=== PATIENT | male | born 1935 | race Caucasian/White ===

== ENCOUNTER 2016-08-18 23:21 | Inpatient (IN) | payer MEDICARE, MEDICAID ==
--- NOTE | 2016-08-18 23:25 | ED Physician Chart ---
Chief Complaint/HPI - Patient Information Date Seen:: 08/18/16 Time Seen:: 23:25 Chief Complaint:: agitation History of Present Illness:: 81-year-old male brought in from nursing facility with acute, worsening, severe , agitation since this morning. Has some associated underlying aggressive behavior towards staff as well. Limited history due to underlying dementia and psychosis History provided by EMS and EMS run sheet Historian:: EMS Review:: Nurse's Note Reviewed, EMS run form Reviewed Review of Systems - Review of Systems Other: Complete system review otherwise unremarkable except as noted in history of present illness. Past Medical History - Past Medical History Past Medical History: DM, Dyslipidemia, Dementia Family History: None Social History: Non Smoker, No Alcohol, No Drug Use, Care Facility Surgical History: None Psychiatricy History: Dementia Medication: Reviewed Family Medical History - Family Member Mother History Unknown: Yes Physical Exam - Physical Examination Other:: INITIAL VITAL SIGNS: Reviewed by me GENERAL: Alert and interactive but demented. No acute distress HEAD: Head is normocephalic and atraumatic EYES: EOMI. PERRL. No scleral icterus. No conjunctival injection ENT: Dry mucous membranes NECK: Supple. No masses. Full range of motion RESPIRATORY: No tachypnea. Clear breath sounds bilaterally. No wheezing, rales, or rhonchi CV: Regular rate and rhythm. No murmurs, rubs, or gallops ABDOMEN: Soft, non-distended, non-tender. No guarding. No rebound. No masses. EXTREMITIES: No deformity. No cyanosis. No edema. SKIN: Warm and dry. No obvious rashes. NEUROLOGIC: Alert and oriented. Face is symmetric. Speech is normal. Moves all extremities equally. Motor and sensory distally intact. Labs/Radiology/EKG Results - Lab Results Results: Lab Results 08/18/16 08/18/16 08/18/16 Range/Units 00:00 23:53 23:53 WBC 8.0 (4.8-10.8) Th/cmm RBC 5.25 (3.80-5.80) Mil/cmm Hgb 16.1 (12.6-17.4) gm/dL Hct 45.7 (39.0-49.0) % MCV 87.0 (80-99) fl MCH 30.6 (27.0-31.0) pg MCHC Differential 35.2 (28.0-36.0) pg RDW 12.0 (11.5-20.0) % Plt Count 169 (150-400) Th/cmm MPV 9.2 fl Neutrophils % 49.6 (40.0-80.0) % Lymphocytes % 39.0 (20.0-50.0) % Monocytes % 8.0 (2.0-10.0) % Eosinophils % 2.9 (0.0-5.0) % Basophils % 0.5 (0.0-2.0) % Sodium 133 L (136-145) mEq/L Potassium 4.1 (3.5-5.1) mEq/L Chloride 101 (98-107) mEq/L Carbon Dioxide 26.8 (21.0-31.0) mEq/L Anion Gap 9.3 (7.0-16.0) BUN 30 H (7-25) mg/dL Creatinine 1.5 H (0.7-1.3) mg/dL Est GFR ( Amer) TNP Est GFR (Non-Af Amer) TNP BUN/Creatinine Ratio 20.0 Glucose 394 H (70-105) mg/dL Calcium 9.7 (8.6-10.3) mg/dL Total Bilirubin 0.7 (0.3-1.0) mg/dL AST 25 (13-39) U/L ALT 33 (7-52) U/L Alkaline Phosphatase 65 (34-104) U/L Total Protein 7.8 (6.0-8.3) gm/dL Albumin 4.2 (4.2-5.5) gm/dL Globulin 3.6 gm/dL Albumin/Globulin Ratio 1.2 (1.0-1.8) Triglycerides 88 (<150) mg/dL Cholesterol 78 (<200) mg/dL LDL Cholesterol Direct 28 L (75-193) mg/dL HDL Cholesterol 38 (23-92) mg/dL TSH (0.34-5.60) uIU/ml Urine Source CLEAN C Urine Color YELLOW Urine Clarity CLEAR (CLEAR) Urine pH 6.0 Ur Specific [place] 1.015 (1.005-1.030) Urine Protein NEGATIVE (NEGATIVE) mg/dL Urine Glucose (UA) 500 H (NEGATIVE) mg/dL Urine Ketones NEGATIVE (NEGATIVE) mg/dL Urine Blood TRACE (NEGATIVE) Urine Nitrate NEGATIVE (NEGATIVE) Urine Bilirubin NEGATIVE (NEGATIVE) Urine Urobilinogen 0.2 (0.2 - 1.0) E.U./dL Ur Leukocyte Esterase NEGATIVE (NEGATIVE) Urine RBC 2-5 H (0-5) /hpf Urine WBC 0-2 (0-5) /hpf Ur Epithelial Cells OCCASIONAL (FEW) /lpf Urine Bacteria OCCASIONAL (NONE SEEN) /hpf 08/18/16 Range/Units 23:53 WBC (4.8-10.8) Th/cmm RBC (3.80-5.80) Mil/cmm Hgb (12.6-17.4) gm/dL Hct (39.0-49.0) % MCV (80-99) fl MCH (27.0-31.0) pg MCHC Differential (28.0-36.0) pg RDW (11.5-20.0) % Plt Count (150-400) Th/cmm MPV fl Neutrophils % (40.0-80.0) % Lymphocytes % (20.0-50.0) % Monocytes % (2.0-10.0) % Eosinophils % (0.0-5.0) % Basophils % (0.0-2.0) % Sodium (136-145) mEq/L Potassium (3.5-5.1) mEq/L Chloride (98-107) mEq/L Carbon Dioxide (21.0-31.0) mEq/L Anion Gap (7.0-16.0) BUN (7-25) mg/dL Creatinine (0.7-1.3) mg/dL Est GFR ( Amer) Est GFR (Non-Af Amer) BUN/Creatinine Ratio Glucose (70-105) mg/dL Calcium (8.6-10.3) mg/dL Total Bilirubin (0.3-1.0) mg/dL AST (13-39) U/L ALT (7-52) U/L Alkaline Phosphatase (34-104) U/L Total Protein (6.0-8.3) gm/dL Albumin (4.2-5.5) gm/dL Globulin gm/dL Albumin/Globulin Ratio (1.0-1.8) Triglycerides (<150) mg/dL Cholesterol (<200) mg/dL LDL Cholesterol Direct (75-193) mg/dL HDL Cholesterol (23-92) mg/dL TSH 2.88 (0.34-5.60) uIU/ml Urine Source Urine Color Urine Clarity (CLEAR) Urine pH Ur Specific [place] (1.005-1.030) Urine Protein (NEGATIVE) mg/dL Urine Glucose (UA) (NEGATIVE) mg/dL Urine Ketones (NEGATIVE) mg/dL Urine Blood (NEGATIVE) Urine Nitrate (NEGATIVE) Urine Bilirubin (NEGATIVE) Urine Urobilinogen (0.2 - 1.0) E.U./dL Ur Leukocyte Esterase (NEGATIVE) Urine RBC (0-5) /hpf Urine WBC (0-5) /hpf Ur Epithelial Cells (FEW) /lpf Urine Bacteria (NONE SEEN) /hpf - EKG Interpretations Comments:: 12-lead EKG Interpretation by Raymond Guzman MD: Normal Sinus Rhythm with ventricular rate of 78 beats per minute Normal axis Normal intervals No acute ST or T wave changes. No obvious STEMI ED Septic Shock - . Is Septic Shock (SBP<90, OR Lactate>4 mmol\L) present?: No Reassessment (Disposition) - Reassessment Reassessment:: This patient is here for medical clearance for admission to the geriatric psych unit however the patient shows signs of dehydration and hyperglycemia. He will need further workup and treatment prior to admission. We have initiated this treatment with inserting IV line and giving IV hydration. Discussed case with admitting physician who will admit the patient for further workup and treatment. After which she can be reassessed for admission to the geriatric psych unit. Reassessment Condition:: Improved - Diagnosis Diagnosis:: Acute kidney injury Acute dehydration Acute hyperglycemia Acute psychosis, NOS - Patient Disposition Discharge/Transfer:: Acute Care w/in this hosp Admitted to:: Med/Surg Admitting Medical Physician:: Finesse Bolden Time:: 00:59 Condition at Disposition:: Stable ED Discharge Plan - Patient Disposition Admit/Discharge/Transfer: Acute Care w/in this hosp
[2016-08-19 00:05] LABS: % BASOPHILS 0.5 % (0.0-2.0); % EOSINOPHILS 2.9 % (0.0-5.0); % NEUTROPHILS 49.6 % (40.0-80.0); HEMATOCRIT 45.7 % (39.0-49.0); HEMOGLOBIN 16.1 gm/dL (12.6-17.4); MEAN CORPUSCULAR HEMOGLOBIN 30.6 pg (27.0-31.0); MEAN CORPUSCULAR HGB CONC 35.2 pg (28.0-36.0); MEAN PLATELET VOLUME 9.2 fl; NEUTROPHILE ABSOLUTE 4.1 Th/cmm (1.8-8.0); PLATELET COUNT 169 Th/cmm (150-400); RED BLOOD COUNT 5.25 Mil/cmm (3.80-5.80)
[2016-08-19 00:17] LABS: ALB/GLOB RATIO 1.2 (1.0-1.8); ALKALINE PHOSPHATASE 65 U/L (34-104); ANION GAP 9.3 (7.0-16.0); BILIRUBIN,TOTAL 0.7 mg/dL (0.3-1.0); BUN - UREA NITROGEN 30 mg/dL (7-25); CALCIUM SERUM 9.7 mg/dL (8.6-10.3); CARBON DIOXIDE 26.8 mEq/L (21.0-31.0); CHLORIDE 101 mEq/L (98-107); CHOLESTEROL 78 mg/dL (<200); CREATININE - SERUM 1.5 mg/dL (0.7-1.3); GLUCOSE 394 mg/dL (70-105); POTASSIUM SERUM 4.1 mEq/L (3.5-5.1); SGOT 25 U/L (13-39); SGPT/ALT 33 U/L (7-52); SODIUM SERUM 133 mEq/L (136-145); TRIGLYCERIDES 88 mg/dL (<150)
[2016-08-19 00:29] LABS: URINE BILIRUBIN NEGATIVE (NEGATIVE); URINE BLOOD TRACE (NEGATIVE); URINE COLOR YELLOW; URINE GLUCOSE (UA) 500 mg/dL (NEGATIVE); URINE KETONE NEGATIVE (NEGATIVE); URINE PROTEIN NEGATIVE (NEGATIVE); URINE UROBILINOGEN 0.2 E.U./dL (0.2 - 1.0)
[2016-08-19 00:30] LABS: URINE BACTERIA OCCASIONAL /hpf (NONE SEEN); URINE EPITHELIAL CELLS OCCASIONAL /lpf (FEW); URINE WBC 0-2 /hpf (0-5)
[2016-08-19] MEDS ORDERED: Sodium Chloride 0.9% 1,000 ML IV ONE (00:53)
[2016-08-19] MEDS: Sodium Chloride 0.9% 1,000 ML IV SCH ×2 (02:35→15:29)
--- NOTE | 2016-08-19 06:32 | Admit Criteria Form ---
Admit Criteria Forms - Admit Criteria Diagnosis: PSYCHIATRIC DISORDERS Clinical Indications for Inpatient Care (Place 'X' for any and all applicable criteria): Ongoing inpatient care may be needed for ANY ONE of the following(1)(2)(3)(4)(6) (7)(8): [ ]I. Danger to self or others not manageable at lower level of care. [ ]II. Grave disability (eg, inability to perform self care necessary at lower level of care) [X ]III. Agitation or inappropriate behavior interfering with care for primary condition (eg, attempting to discontinue lines or drains prematurely, unable to cooperate with respiratory care) [ ]IV. Severe disability or disorder indicated by ALL of the following: [ ]a) Severe behavioral health disorder-related symptoms or condition indicated by ANY ONE of the following: [ ]i) Severe problem with cognition, memory, judgment, or impulse control [ ]ii) Severe clinical manifestations (eg, hallucinations, delusions, other acute psychotic symptoms, mora, extreme agitation or anxiety) [ ]b) Patient management at lower level of care is not feasible until acute intervention or modification is initiated. Extended stay beyond goal length of stay for the primary condition may be indicated when ANY ONE of the following is present: (1)(2)(3)(4): [ ]a) Patient is a danger to self or others and not manageable at lower level of care. [ ]b) Behavior crisis management, including physical or chemical restraints, is required and is not available at a lower level of care. [ ]c) Behavioral symptoms (e.g., agitation, somnolence, inappropriate behavior) are present, and are not manageable at a lower level of care. [ ]d) Patient cannot understand follow-up treatment and crisis plan. [ ]e) Provider and supports are not sufficiently available at lower level of care. [ ]f) Patient cannot participate (e.g., verify absence of plan for harm) and is in needed of monitoring. The original [facility] [employer] content created by [facility] has been revised. The portions of the content which have been revised are identified through the use of italic text or in bold, and [facility] has neither reviewed nor approved the modified material. All other unmodified content is copyright [facility]. Please see references footnoted in the original [facility] edition 2016 Admit Criteria Met?: Yes
[2016-08-19] MEDS: INSULIN ASPART, RECOMBINANT 100 UNITS/ML SUBQ SCH ×4 (07:54→21:05)
[2016-08-19] MEDS ORDERED: APAP/Codeine 300 mg/30 mg Tab PO PRN (16:37)
[2016-08-19] MEDS ORDERED: Magnesium Hydroxide (MOM) 30 mL UDC PO PRN (16:37)
--- NOTE | 2016-08-19 17:11 | History & Physical ---
PATIENT IDENTIFICATION: An 81-year-old male. CHIEF COMPLAINT: "I am fine." HISTORY OF PRESENT ILLNESS: An 81-year-old Argentine male who resides at a custodial, admitted by me last night because the patient was initially advised to be admitted at Geropsych Unit noted to have blood sugar of more than 400 and the patient was weak. The patient was admitted for further management of his diabetes. The patient was also noted to have elevated BUN and creatinine. The patient has underlying dementia and unable to get meaningful history. According to him, he has been living here for a long time. PAST MEDICAL HISTORY: Remarkable for diabetes, hypertension, hyperlipidemia, BPH, DJD and psychotic disorder. MEDICATIONS: List has been reviewed and reconciled appropriately. ALLERGIES: The patient is not allergic to medications. SOCIAL HISTORY: He currently resides in a custodial. No smoking cigarette, alcohol or drug use. FAMILY MEDICAL HISTORY: Unavailable. REVIEW OF SYSTEMS: Unable to get meaningful history from the patient. PHYSICAL EXAMINATION: GENERAL: The patient is alert, awake, lying in the bed. VITAL SIGNS: Temperature 97.7, pulse 75, respiratory rate 18, blood pressure 156/93. HEENT: Normocephalic, atraumatic. Extraocular muscles are intact. Tongue was pink and coated. Poor dentition noted. NECK: Supple, no JVD, no hepatojugular reflux. No lymphadenopathy, thyromegaly or carotid bruit. HEART: Both heart sounds are regular. No S3, no S4, no murmur. CHEST: Lung equal in expansion with expiratory wheezing throughout. ABDOMEN: Soft. No guarding, no rigidity. Liver and spleen nonpalpable. No palpable mass. EXTREMITIES: No edema, no cyanosis. NEUROLOGIC: Alert, awake, follows commands. No gross neuro deficit noted. Mini mental status examination is tried to perform in which patient became ____ noncooperative. AVAILABLE DIAGNOSTIC DATA: CBC within normal limits. BUN and creatinine is 30 and 1.5. Glucose is 394. The patient's hemoglobin A1c is 11.5. Urinalysis remarkable for significant glucose in the urine and rbc's were 25. Chest x-ray and EKG were nondiagnostic for acute ischemia. CLINICAL IMPRESSION: 1. Uncontrolled diabetes mellitus. 2. Prerenal azotemia. 3. Hypertension. 4. Hyperlipidemia. 5. Degenerative joint disease. 6. Alzheimer's type dementia. 7. Psychotic disorder. PLAN: The patient has been admitted by me to the hospital for IV fluid and blood sugar management where the patient is extremely noncompliant. I will put the patient currently on medication as the patient is receiving and have psychiatrist to see the patient and the patient was accepted transfer to the Psych Unit for psychiatric care where I will be managing the patient's diabetes as well. Care plan has been reviewed and discussed with patient and staff. JOB# [id number]
[2016-08-19] MEDS: Fleet Enema 135 mL RC SCH (17:28)
[2016-08-19] MEDS: Atorvastatin Calcium 10 MG TAB PO SCH (20:54)
[2016-08-19] MEDS ORDERED: INSULIN ASPART, RECOMBINANT 100 UNITS/ML SUBQ SCH (21:00)
[2016-08-19] MEDS ORDERED: INSULIN GLARGINE SUBQ SCH (21:00)
[2016-08-19] MEDS: Insulin Detemir 100 units/mL 10mL Vial SUBQ SCH (21:03)
--- NOTE | 2016-08-20 01:51 | Consultation ---
IDENTIFYING INFORMATION: The patient is an 81-year-old male. REASON FOR CONSULTATION: The patient has been getting agitated and aggressive. The patient himself was a very poor historian. He was unable to tell me his age, where he is, why he is here. He did not able to tell me the date. He does not know where he lives. He is demented and confused. PAST PSYCHIATRIC HISTORY: He is not sure if he has been before, unable to give information from the patient. He is a poor historian, though he is alert. MEDICAL HISTORY: HISTORY: Deferred to the medical doctor. FAMILY AND SOCIAL HISTORY: The patient has no information about any family history, however, he told me he was single, never , no children. 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 MENTAL STATUS EXAMINATION: The patient was appropriately dressed, not very well groomed. He looked disheveled, disorganized, internally preoccupied, unable to participate in meaningful conversation, unable to tell me his age, where he is, why he is here. He reports he sleeps well and eats well. He has been getting very agitated and he cannot tell me why he gets agitated. His long or short term memory is poor. He is unable to tell me his age, where he is, that he is here. His insight and judgment are impaired. IMPRESSION: AXIS I: Psychosis, not otherwise specified, and dementia. MEDICAL DIAGNOSES: Deferred to the medical doctor. I would recommend to start the patient on Risperdal. I will start him on Risperdal 0.25 mg twice a day. We will do group therapy, milieu therapy, and individual therapy. The patient needs to be placed in a safe environment. I will follow up with the patient. The patient may need to be transferred to psych unit when medically cleared. Thank you very much for allowing me to participate in the care of this most interesting gentleman. JOB# [id number]
[2016-08-20] MEDS: INSULIN ASPART, RECOMBINANT 100 UNITS/ML SUBQ SCH (06:44)
[2016-08-20] MEDS ORDERED: CALCIUM CARBONATE PO SCH (09:00)
[2016-08-20] MEDS ORDERED: VITAMIN D3 PO SCH (09:00)
[2016-08-20] MEDS ORDERED: [UNRECOGNIZED DRUG - OTHER] PO SCH (09:00)
[2016-08-20] MEDS: Calcium Carb/Vit D 500 mg/200 U Tab PO SCH (09:27)
[2016-08-20] MEDS: Multivitamin w/ Minerals Tab PO SCH (09:27)
[2016-08-20] MEDS: Sodium Chloride 0.9% 1,000 ML IV SCH ×2 (11:42→17:42)
[2016-08-20] MEDS ORDERED: INSULIN ASPART SLIDING SCALE 100 UNITS/ML UNIT SUBQ SCH (11:45)
[2016-08-20 12:18] LABS: HEP B CORE IGM Negative (Negative); HEP C ANTIBODY 0.1 s/co ratio (0.0-0.9)
[2016-08-20] MEDS: INSULIN ASPART SLIDING SCALE 100 UNITS/ML UNIT SUBQ SCH ×3 (12:22→22:03)
[2016-08-20] MEDS: Fleet Enema 135 mL RC SCH (17:39)
[2016-08-20] MEDS: Atorvastatin Calcium 10 MG TAB PO SCH (22:02)
[2016-08-20] MEDS: Insulin Detemir 100 units/mL 10mL Vial SUBQ SCH (22:05)
--- NOTE | 2016-08-21 01:51 | Progress Notes ---
Case was discussed with staff of the patient, reviewed records. The patient continues to be forgetful. He does not know where he lived before. Apparently, he is living in a [facility]dc and they send all his belongings with him. He continues to be easily agitated and irritable, continues to be unable to make safe plan for self-care, unpredictable and impulsive. I found out that he has been on Seroquel, so I will be discontinuing Risperdal. I did start him on Aricept ____ please transfer the patient to [facility] when medically cleared. Thank you very much for allowing me to participate in the care of this most interesting gentleman. JOB# [id number]
[2016-08-21] MEDS: Sodium Chloride 0.9% 1,000 ML IV SCH (06:42)
[2016-08-21] MEDS: INSULIN ASPART SLIDING SCALE 100 UNITS/ML UNIT SUBQ SCH ×3 (06:43→14:02)
[2016-08-21] MEDS: Multivitamin w/ Minerals Tab PO SCH (09:14)
[2016-08-21] MEDS: Calcium Carb/Vit D 500 mg/200 U Tab PO SCH (09:14)
--- NOTE | 2016-08-22 00:39 | Progress Notes ---
Case was discussed with staff of the patient. The patient has been more cooperative. The patient is sleeping well, eating well. He is not acting in anyway dangerous at this point. He denies any intent to harm himself or anybody. Still confused, demented, cannot know the date, how old he is, where he is. At this point, there is no point sending him to [facility] and follow up with the psychiatrist at the correction upon discharge and no side effects with the medication. Thank you very much for allowing me to participate in the care of this very interesting lady, he no longer meeting criteria for the inpatient hospitalization at [facility]. JOB# [id number]
--- NOTE | 2016-08-22 19:37 | Discharge Summary ---
PRINCIPAL DIAGNOSES: 1. Uncontrolled diabetes mellitus. 2. Dehydration. 3. Chronic kidney disease. 4. Prerenal azotemia. 5. Psychotic disorder. 6. Hypertension. 7. Degenerative joint disease. 8. Hyperlipidemia. 9. Psychotic disorder. 10. Benign prostatic hyperplasia. BRIEF STATEMENT FOR THE REASON FOR ADMISSION: This is an 81-year-old [place] male who resides at [facility]ci, presented to Emergency Room at [facility] for increasing agitations, but the patient was noted to have blood sugar of 400 plus elevated BUN and creatinine. The patient was advised to be admitted to medical floor. Please refer to my dictated medical H and P for further information. HOSPITAL COURSE: The patient was admitted to Med/Surg floor. IV fluid was given. Diabetes was managed. Appropriate home medicine was reconciliated. Psych consultation was requested as well. The patient was seen by Dr. Naranjo with initial impressions to admit this patient to psychiatric unit, but subsequently noted that the patient became very cooperative and was able to sleep and eating well, and the patient was not acting in any dangerous way at that point and recommended that the patient should be discharged back to [facility]. The patient was still confused, demented, and cannot know the date, so I did have a discussion with psychiatrist to send him back to the [facility] since the patient had no behavioral issues after the patient's coming to the medical floor. The patient did well. The patient was placed on psychotropic medications as well. The patient did have an episode of choking after eating food. For that, the patient was also observed, but later on, the patient had no evidence of any dysphagia. The patient was [facility] to [facility] from on 08/21/2016, where the patient will be followed by his own primary care physician. At the time of discharge, all of his meds were reconciliated. JOB# [id number]
== END 2016-08-21 15:30 | DRG 637 ==
LOC: ER 23:21 → MSI 08-19 01:00
PROVIDERS: ADMIT Internal Medicine; ATTEND Internal Medicine
DX: E11.00 Type 2 diabetes mellitus with hyperosmolarity without nonketotic hyperglycemic-hyperosmolar coma (NKHHC) (principal); G93.41 Metabolic encephalopathy; N17.9 Acute kidney failure, unspecified; E11.65 Type 2 diabetes mellitus with hyperglycemia; G30.9 Alzheimer's disease, unspecified; F02.80 Dementia in other diseases classified elsewhere, unspecified severity, without behavioral disturbance, psychotic disturbance, mood disturbance, and anxiety; I12.9 Hypertensive chronic kidney disease with stage 1 through stage 4 chronic kidney disease, or unspecified chronic kidney disease; E78.5 Hyperlipidemia, unspecified; M19.90 Unspecified osteoarthritis, unspecified site; F29 Unspecified psychosis not due to a substance or known physiological condition; N40.0 Benign prostatic hyperplasia without lower urinary tract symptoms; N18.9 Chronic kidney disease, unspecified
CPT/HCPCS: 36415-UA; 80053-TC; 80061-TC; 80074-90; 81001-TC; 82948-90; 83036-90; 84443-TC; 85025-TC; 86592-TC; 93005; J1815; J7030; Z7610

== ENCOUNTER 2017-12-27 18:15 | Inpatient (IN) | payer MEDICARE, MEDICAID ==
--- NOTE | 2017-12-27 18:35 | ED Physician Chart ---
ED Chief Complaint/HPI - Patient Information Date Seen:: 12/27/17 Chief Complaint:: inappropriate sexual behavior History of Present Illness:: inappropriate sexual behavior pulling down pants. Allergies:: Allergies Allergy/AdvReac Type Severity Reaction Status Date / Time No Known Allergies Allergy Verified 08/18/16 23:40 ED Review of Systems - Review of Systems Skin: No skin lesions, No rash, No bruising Head: No headache, No light-headedness Eyes: No loss of vision, No pain, No diplopia ENT: No earache, No nasal drainage, No sore throat, No tinnitus Neck: No neck pain, No swelling, No thyromegaly, No stiffness, No mass noted Cardio Vascular: No chest pain, No palpitations, No PND, No orthopnea, No edema Pulmonary: No SOB, No cough, No sputum, No wheezing GI: No nausea, No vomiting, No diarrhea, No pain, No melena, No hematochezia, No constipation, No hematemesis G/U: No dysuria, No frequency, No hematuria Musculoskeletal: No bone or joint pain, No back pain, No muscle pain Endocrine: No polyuria, No polydipsia Psychiatric: No suicidal ideation, Other (inappropriate sexual behavior, pulling down pants) Hematopoietic: No bruising, No lymphadenopathy Allergic/Immuno: No urticaria, No angioedema Neurological: No syncope, No focal symptoms, No weakness, No paresthesia, No headache, No seizure, No dizziness, No confusion, No vertigo ED Past Medical History - Past Medical History Obtainable: Yes (through records only) Family Medical History - Family Member Mother History Unknown: Yes ED Physical Exam - Physical Examination General/Constitutional: Awake, Well-developed, well-nourished, No distress, Non- toxic appearing Head: Atraumatic Eyes: Lids, conjuctiva normal, PERRL, EOMI Skin: Nl inspection, No rash, No skin lesions, No ecchymosis, Well hydrated, No lymphadenopathy Other Skin comments:: patient is wearing big, bulky diabetic shoes, but there are no lesions anywhere on this feet. ENMT: External ears, nose nl, Nasal exam nl, Lips, teeth, gums nl Other ENMT comments:: very dry mucous membranes. Neck: Nontender, Full ROM w/o pain, No JVD, No nuchal rigidity, No bruit, No mass, No stridor Respiratory: Nl effort/Exclusion, Clear to Auscultation, No Wheeze/Rhonchi/Rales Cardio Vascular: RRR, No murmur, gallop, rubs, NL S1 S2 GI: No tenderness/rebounding/guarding, No organomegaly, No hernia, Normal BS's, Nondistended, No mass/bruits, No McBurney tenderness : No CVA tenderness Extremities: No tenderness or effusion, Full ROM, normal strength in all extremities, No edema, Normal digits & nails Neuro/Psych: Mood normal Other Neuro/Psych comments:: mood normal at this time, but I examined the patient with a male nurse. ED Assessment - Assessment General Assessment: EKG from 19:36:17 p.m.: normal sinus rhythm, flipped t wave in II, III, AVF and V3 to V6. Assessment/Comments:: spoke to Dr. Paris about this patient who agrees that he is not medically cleared from a medical standpoint. He will admit the patient. IV fluids and IV Insulin were written for. ED Septic Shock - . Is Septic Shock (SBP<90, OR Lactate>4 mmol\L) present?: No ED Reassessment (Disposition) - Diagnosis Diagnosis:: Diabetes mellitus, uncontrolled Inappropriate sexual behavior Metabolic encephalopathy Hypertension Muscle weakness Hyperlipidemia Epilepsy, unspecified. - Patient Disposition Discharge/Transfer:: Acute Care w/in this hosp
[2017-12-27 18:42] LABS: % BASOPHILS 0.1 % (0.0-2.0); % EOSINOPHILS 2.8 % (0.0-5.0); % LYMPHOCYTES 40.1 % (20.0-50.0); % MONOCYTES 6.9 % (2.0-10.0); % NEUTROPHILS 50.1 % (40.0-80.0); EOSINOPHILE ABSOLUTE 0.2 Th/cmm (0.1-0.4); HEMATOCRIT 43.2 % (41.0-60); HEMOGLOBIN 14.7 gm/dL (12-16); LYMPHOCYTE ABSOLUTE 3.1 Th/cmm (1.5-3.0); MEAN CORPUSCULAR HEMOGLOBIN 30.4 pg (27.0-31.0); MEAN CORPUSCULAR HGB CONC 34.1 pg (28.0-36.0); MEAN PLATELET VOLUME 8.2 fl; MONOCYTE ABSOLUTE 0.5 Th/cmm (0.3-1.0); NEUTROPHILE ABSOLUTE 3.9 Th/cmm (1.8-8.0); PLATELET COUNT 221 Th/cmm (150-400); RED BLOOD COUNT 4.85 Mil/cmm (3.80-5.80); RED CELL DISTRIBUTION WIDTH 12.1 % (11.5-20.0); WHITE BLOOD COUNT 7.7 Th/cmm (4.8-10.8)
[2017-12-27 18:57] LABS: ALB/GLOB RATIO 1.3 (1.0-1.8); ALKALINE PHOSPHATASE 78 U/L (34-104); ANION GAP 13.3 (7.0-16.0); BILIRUBIN,TOTAL 0.7 mg/dL (0.3-1.0); BUN - UREA NITROGEN 34 mg/dL (7-25); CALCIUM SERUM 9.2 mg/dL (8.6-10.3); CARBON DIOXIDE 27.4 mEq/L (21.0-31.0); CHLORIDE 93 mEq/L (98-107); CREATININE - SERUM 1.5 mg/dL (0.7-1.3); MAGNESIUM 2.2 mg/dL (1.9-2.7); PHOSPHOROUS 3.5 mg/dL (2.5-5.0); POTASSIUM SERUM 4.7 mEq/L (3.5-5.1); SGOT 13 U/L (13-39); SGPT/ALT 15 U/L (7-52); SODIUM SERUM 129 mEq/L (136-145); TOTAL PROTEIN,SERUM 7.2 gm/dL (6.0-8.3)
[2017-12-27 18:58] LABS: GLUCOSE 536 mg/dL (70-105)
[2017-12-27] MEDS ORDERED: INSULIN HUMAN REGULAR 100 UNITS/ML UNIT IVP ONE (19:06)
[2017-12-27] MEDS ORDERED: Sodium Chloride 0.9% 1,000 ML IV ONE (19:12)
[2017-12-27 19:18] LABS: URINE SOURCE CLEAN C
[2017-12-27] MEDS ORDERED: INSULIN HUMAN REGULAR 100 UNITS/ML UNIT ONE (19:21)
[2017-12-27 19:27] LABS: URINE CLARITY CLEAR (CLEAR); URINE COLOR YELLOW
[2017-12-27 19:28] LABS: URINE BILIRUBIN NEGATIVE (NEGATIVE)
[2017-12-27 19:29] LABS: URINE BLOOD NEGATIVE (NEGATIVE); URINE KETONE NEGATIVE (NEGATIVE); URINE LEUKOCYTE ESTERASE NEGATIVE (NEGATIVE); URINE MICROSCOPIC INDICATED? YES; URINE NITRATE NEGATIVE (NEGATIVE); URINE PROTEIN TRACE mg/dL (NEGATIVE); URINE UROBILINOGEN 0.2 E.U./dL (0.2 - 1.0)
[2017-12-27 19:30] LABS: URINE GLUCOSE (UA) >=1000 mg/dL (NEGATIVE)
[2017-12-27 19:33] LABS: URINE BACTERIA OCCASIONAL /hpf (NONE SEEN); URINE EPITHELIAL CELLS OCCASIONAL /lpf (FEW); URINE WBC 0-2 /hpf (0-5)
[2017-12-27 19:34] LABS: AMPHETAMINE URINE NEGATIVE (NEGATIVE); BARBITURATES URINE NEGATIVE (NEGATIVE); BENZODIAZEPINES QUAL URINE NEGATIVE (NEGATIVE); CANNABINOID THC NEGATIVE (NEGATIVE); COCAINE METABOLITE QUAL URINE NEGATIVE (NEGATIVE); METHADONE URINE NEGATIVE (NEGATIVE); METHAMPHETAMINES QUAL URINE NEGATIVE (NEGATIVE); OPIATES (MORPHINE) QUAL. URINE NEGATIVE (NEGATIVE); PHENCYCLIDINE (PCP) URINE NEGATIVE (NEGATIVE); TRICYCLICS (TCA) QUAL. URINE NEGATIVE (NEGATIVE)
[2017-12-27] MEDS: INSULIN ASPART SLIDING SCALE 100 UNITS/ML UNIT SUBQ SCH (23:47)
[2017-12-28] MEDS: Sodium Chloride 0.45% 1,000 ML IV SCH ×3 (02:55→11:18)
[2017-12-28] MEDS: INSULIN ASPART SLIDING SCALE 100 UNITS/ML UNIT SUBQ SCH ×3 (05:24→17:49)
[2017-12-28] MEDS ORDERED: VTE Chemical Prophylaxis Screen/Admission MC PRN (07:59)
[2017-12-28 08:41] LABS: % BASOPHILS 0.5 % (0.0-2.0); % EOSINOPHILS 2.1 % (0.0-5.0); % LYMPHOCYTES 38.6 % (20.0-50.0); % MONOCYTES 5.8 % (2.0-10.0); EOSINOPHILE ABSOLUTE 0.2 Th/cmm (0.1-0.4); HEMATOCRIT 43.3 % (41.0-60); HEMOGLOBIN 14.9 gm/dL (12-16); LYMPHOCYTE ABSOLUTE 3.4 Th/cmm (1.5-3.0); MEAN CELL VOLUME 88.1 fl (80-99); MEAN CORPUSCULAR HEMOGLOBIN 30.4 pg (27.0-31.0); MEAN CORPUSCULAR HGB CONC 34.5 pg (28.0-36.0); MEAN PLATELET VOLUME 8.6 fl; MONOCYTE ABSOLUTE 0.5 Th/cmm (0.3-1.0); NEUTROPHILE ABSOLUTE 4.6 Th/cmm (1.8-8.0); PLATELET COUNT 245 Th/cmm (150-400); RED BLOOD COUNT 4.91 Mil/cmm (3.80-5.80); RED CELL DISTRIBUTION WIDTH 12.1 % (11.5-20.0); WHITE BLOOD COUNT 8.7 Th/cmm (4.8-10.8)
[2017-12-28 09:08] LABS: ANION GAP 13.3 (7.0-16.0); BUN - UREA NITROGEN 25 mg/dL (7-25); CALCIUM SERUM 8.7 mg/dL (8.6-10.3); CARBON DIOXIDE 24.5 mEq/L (21.0-31.0); CHLORIDE 100 mEq/L (98-107); CHOLESTEROL 101 mg/dL (<200); CREATININE - SERUM 1.2 mg/dL (0.7-1.3); HDL -HIGH DENSITY LIPOPROTEIN 40 mg/dL (23-92); POTASSIUM SERUM 3.8 mEq/L (3.5-5.1); SODIUM SERUM 134 mEq/L (136-145); TRIGLYCERIDES 69 mg/dL (<150)
[2017-12-28 09:30] LABS: GLUCOSE 256 mg/dL (70-105)
[2017-12-28 19:27] LABS: HEMOGLOBIN 16 g/dL (4.0-35.0)
[2017-12-28 19:28] LABS: A1C % > 15.0 % (4.0-6.0)
--- NOTE | 2017-12-28 19:39 | Consultation ---
DATE OF CONSULTATION: 12/28/2017 PSYCHIATRIC CONSULTATION PHYSICIAN REQUESTING CONSULTATION: Ashley Paris M.D. REASON FOR CONSULTATION: Inappropriate sexual behavior. HISTORY OF PRESENT ILLNESS: This patient is an 82-year-old male, resident of [facility] in [place]. The patient has been referred over here for inappropriate sexual behavior. However, the patient is reported to have had blood sugar out of control and the patient is currently being stabilized on the medical unit and I tried to interview the patient with the help of a Irish speaking business office manager, but the patient has been very reluctant and is stating to give any information and has been mentioning that he came in here from ____ and he should not be bothered and the patient has been getting easily irritable and angry. The patient is very demented and has been not making much sense. The patient's sleep and appetite prior to the hospitalization are reported to be fair. The patient is reported to have been pulling his pants down and has been exposing himself. The patient has been having difficult time to be redirected and hence the patient has been referred over here for stabilization. PAST PSYCHIATRIC HISTORY: Details are not known. MEDICAL HISTORY: Significant for multiple medical problems, such as hypertension, diabetes mellitus, gout, prostatic hypertrophy. LEGAL PROBLEMS: None at this time. STRENGTHS AND ASSETS: The patient seems to be motivated. MENTAL STATUS EXAMINATION: This is an 82-year-old, looking his stated age, superficially cooperative. Eye contact is poor. Mood is noted to be irritable. Affect is constricted. Insight and judgment are noted to be still impaired. Impulse control is noted to be limited. The patient is very guarded and is not providing much of information. The patient is very paranoid and is sexually preoccupied. The patient is alert and awake. Short and long-term memory are noted to be impaired. Attention span and concentration are noted to be poor. DIAGNOSTIC IMPRESSION: I. Psychotic disorder, not otherwise specified. IB. Dementia and behavioral change secondary to dementia. PLAN: To continue the patient with the Seroquel and once the patient is medically cleared, he is going to be transferred to the geropsychiatric unit for further care. Thank you, Dr. Paris for allowing me to participate in the care of the patient. JOB# [id number]
[2017-12-29] MEDS: INSULIN ASPART SLIDING SCALE 100 UNITS/ML UNIT SUBQ SCH ×3 (00:56→12:28)
== END 2017-12-29 16:07 | DRG 637 ==
LOC: ER 18:15 → MSI 19:40
PROVIDERS: ADMIT Internal Medicine; ATTEND Internal Medicine
DX: E11.65 Type 2 diabetes mellitus with hyperglycemia (principal); G93.41 Metabolic encephalopathy; F03.91 Unspecified dementia, unspecified severity, with behavioral disturbance; I10 Essential (primary) hypertension; M62.81 Muscle weakness (generalized); E78.5 Hyperlipidemia, unspecified; G40.909 Epilepsy, unspecified, not intractable, without status epilepticus; M10.9 Gout, unspecified; N40.0 Benign prostatic hyperplasia without lower urinary tract symptoms; F29 Unspecified psychosis not due to a substance or known physiological condition
CPT/HCPCS: 36415-UA; 80048-TC; 80053-TC; 80061-TC; 80307; 81001-TC; 82948-90; 83036-90; 83735-TC; 84100-TC; 84443-TC; 84484-TC; 85025-TC; 96374; J1644; J1815; J7030

== ENCOUNTER 2017-12-29 16:50 | Inpatient (IN) | payer MEDICARE, MEDICAID ==
[2017-12-29 17:32] VITALS: BP 157/73
[2017-12-29] MEDS ORDERED: Maalox 30 mL Cup PO PRN (20:03)
[2017-12-29] MEDS ORDERED: Magnesium Hydroxide (MOM) 30 mL UDC PO PRN ×2 (20:03→20:42)
[2017-12-29] MEDS ORDERED: Polyvinyl Alcohol Ophth Soln 15 mL Bottle EACH EYE PRN (20:47)
[2017-12-30] MEDS: INSULIN ASPART SLIDING SCALE 100 UNITS/ML UNIT SUBQ SCH ×4 (00:21→18:13)
[2017-12-30] MEDS: Multivitamin Tab PO SCH (08:55)
[2017-12-30] MEDS: Aspirin 81mg Chewable Tab PO SCH (08:55)
[2017-12-30] MEDS: NIFEdipine 30 mg ER Tab PO SCH (10:09)
[2017-12-31] MEDS: INSULIN ASPART SLIDING SCALE 100 UNITS/ML UNIT SUBQ SCH ×3 (00:21→18:54)
[2017-12-31] MEDS: Multivitamin Tab PO SCH (08:42)
[2017-12-31] MEDS: Aspirin 81mg Chewable Tab PO SCH (08:45)
[2017-12-31] MEDS: NIFEdipine 30 mg ER Tab PO SCH (08:46)
[2017-12-31] MEDS ORDERED: INSULIN HUMAN REGULAR 100 UNITS/ML UNIT SUBQ SCH (09:00)
[2017-12-31] MEDS ORDERED: INSULIN ASPART, RECOMBINANT 100 UNITS/ML SUBQ SCH (09:00)
[2017-12-31] MEDS ORDERED: Insulin Detemir 100 units/mL 10mL Vial SUBQ SCH (09:00)
--- NOTE | 2017-12-31 18:14 | Progress Notes ---
DATE: 12/31/[address] Ayala. Case was discussed with staff of the patient, reviewed records. This is an 82-year-old male who was admitted on 12/29/2017 because of psychosis and agitation. The patient is unpredictable, impulsive, needing redirection. Continues to have poor insight. Dr. Ayala initiated him on Seroquel 25 mg at bedtime and 12 mg daily. He is compliant with the medication with no side effects, no sedation, no nausea, and no extrapyramidal symptoms. We will continue to work with the patient in group therapy, milieu therapy, and adjust medication as needed. JOB# [id number]
[2018-01-01] MEDS: INSULIN ASPART SLIDING SCALE 100 UNITS/ML UNIT SUBQ SCH ×5 (00:30→17:16)
[2018-01-01] MEDS: Aspirin 81mg Chewable Tab PO SCH (09:25)
[2018-01-01] MEDS: Multivitamin Tab PO SCH (09:25)
[2018-01-01] MEDS: NIFEdipine 30 mg ER Tab PO SCH (09:25)
--- NOTE | 2018-01-01 11:35 | History & Physical ---
ADMIT DATE: 12/29/2017 CHIEF COMPLAINT: Agitation. HISTORY OF PRESENT ILLNESS: This is an 82-year-old male who was admitted from a detention facility to [facility] due to increase in agitation. REVIEW OF SYSTEMS: GENERAL: This is an 82-year-old male that appears as stated. No fever. No weakness. HEENT: Head: No headache. No dizziness. Eyes: No eye pain. No blurring of vision. NECK: No neck pain or nuchal rigidity. CHEST: No chest pain or palpitation. PULMONARY: No coughing. No shortness of breath. GASTROINTESTINAL: No abdominal pain, no constipation, no diarrhea. MUSCULOSKELETAL: No joint pain. No muscle pain. SOCIAL HISTORY: The patient lives in a detention facility prior to hospitalization. Denies nicotine, alcohol, or illicit drug use. FAMILY HISTORY: Unremarkable. PAST SURGICAL HISTORY: Unremarkable. PSYCHIATRIC HISTORY: Includes possible schizophrenia. PAST MEDICAL HISTORY: Includes diabetes, osteoarthritis, hypertension. PHYSICAL EXAMINATION: VITAL SIGNS: Temperature 97.8, heart rate 79, blood pressure 102/55, respirations of 18, 98% on room air. HEENT: Head: Atraumatic, normocephalic. Eyes: Bilateral conjunctivae are clear. Bilateral pupils equal, round and reactive. NECK: Supple. No JVD. CARDIOVASCULAR: S1 and S2 without murmur. PULMONARY: Clear to auscultation. GASTROINTESTINAL: Soft and nontender without guarding. Positive bowel sounds. MUSCULOSKELETAL: No clubbing. No cyanosis noted. ASSESSMENT: 1. Psychosis. 2. Diabetes. 3. Osteoarthritis. 4. Hypertension. PLAN: We will admit the patient to psychiatric unit and we will do medication reconciliation accordingly. We will follow up with a psychiatrist to monitor the patient's condition and behavior. Treatment plans were discussed with the patient's nurse. Treatment plans were discussed with Dr. Paris. JOB# [id number]
--- NOTE | 2018-01-01 21:45 | Progress Notes ---
DATE: 01/01/2018 SUBJECTIVE: The patient in the hospital, disoriented to why he is here. He does not know why he is here, does not know the year, does not know the month, he does not know the day of the week, he does know he is in the hospital. He states here because he is "denying," I do not know what this means. Noted to be impulsive, unpredictable. He is calm at this time, but staff notes he gets easily agitated, paranoid, not sleeping well and eating with lot of prompting. Slept for about 4 hours. The patient refusing care at times. ASSESSMENT: The patient is disoriented, gets agitated, highly labile behaviors, impulsive and unpredictable. Medications were noted. Encourage medication compliance. We will continue to monitor. The patient with ongoing behaviors. JOB# [id number]
[2018-01-02] MEDS: INSULIN ASPART SLIDING SCALE 100 UNITS/ML UNIT SUBQ SCH ×5 (00:23→21:22)
--- NOTE | 2018-01-02 00:27 | Psychiatric Evaluation ---
DATE OF SERVICE: 12/29/2017 PSYCHIATRIC INITIAL EVALUATION AND MENTAL STATUS EXAMINATION AGE: 82. SEX: Male. PHYSICIAN: Dr. Ayala. CHIEF COMPLAINT: Inappropriate sexual behavior. HISTORY OF PRESENT ILLNESS: The patient is an 82-year-old male who was admitted to the hospital from [facility]. The patient has been exhibiting sexual inappropriate behavior including lowering his pants and playing with himself in front of other residents. The patient also has not been able to follow directions and has been more agitated and more irritable. The patient also has not been able to stop the behavior in spite of staff instruction. The patient is also agitated during interview in spite of staff helping with translation from the Jamaican language. Also, he was getting angry and agitated with my chart interview. PAST PSYCHIATRIC HISTORY: The patient might have history of dementia, but that is not clear at this time. PAST MEDICAL HISTORY: The patient has history of hypertension, diabetes mellitus, gout, and benign prostatic hypertrophy. FAMILY PSYCHIATRIC HISTORY: Unknown. PAIN ASSESSMENT: The patient does not seem to be in pain. SOCIAL HISTORY: The patient lives in [facility]. No known alcohol or drug use. No legal issues or abuse issues. ALLERGIES: No known allergies. MENTAL STATUS EXAMINATION: The patient appears his age. Anxious. Flat affect. Irritable mood. Jamaican speaking. The patient seems to be responding to stimuli, but denies auditory or visual hallucinations or delusions. The patient forgets. Speaks in Jamaican and staff helped with translation. The patient denied suicidal or homicidal ideations. The patient is alert and oriented to the situation and place. Impaired immediate memory and recent memory, but intact remote memory. He did remember his date. Poor insight and poor judgment. ASSESSMENT: PRIMARY DIAGNOSIS: Unspecified psychosis. SECONDARY DIAGNOSIS: Dementia, moderate to severe, with psychotic features and behavioral disturbances. MEDICAL DIAGNOSES: 1. Hypertension. 2. Hyperlipidemia. 3. Benign prostatic hypertrophy. 4. Diabetes mellitus. TREATMENT PLAN: We will continue to monitor his behavior and his condition closely. We will start individual as well as milieu psychotherapy. Also, we will monitor psychotropic medications. ESTIMATED LENGTH OF STAY: 5-7 days. THE PATIENT'S STRENGTHS AND WEAKNESSES: The patient's strength is that he is in relatively fair health. His weaknesses are his poor impulse control and inappropriate behavior. AFTER DISCHARGE PLAN: The patient will return to [facility] with outpatient treatment and followup there. JOB# [id number]
--- NOTE | 2018-01-02 07:48 | Progress Notes ---
DATE: 01/02/2018 SUBJECTIVE: The patient is currently in the hospital also isolative, hopeless, very confused, does not know where he is, does not know the year, does know the month, does not know the day of the week, asks "is this a hospital", yelling at times, "I am going to , I am going to , I am going to ", sleeping with general practitioner awakenings, agitated, suspicious with staff. ASSESSMENT: Ongoing behaviors, agitation, unruly at times, yells. PLAN: We will continue to monitor, ongoing safety concerns, concerns for irritability and anger here because he was exhibiting sexually inappropriate behaviors, mostly isolative at this time. Medications were noted. We will adjust and titrate medications as tolerated. [facility]# [id number]
[2018-01-02] MEDS: Multivitamin Tab PO SCH (10:00)
[2018-01-02] MEDS: Aspirin 81mg Chewable Tab PO SCH (10:00)
[2018-01-02] MEDS: NIFEdipine 30 mg ER Tab PO SCH (10:17)
--- NOTE | 2018-01-02 11:38 | General Progress Note ---
Subjective - Review of Systems Events since last encounter: patient very confused feeling hopeless Objective - Results Recent Labs: Laboratory Last Values POC Glucose 167 MG/DL (70 - 105) H 01/02/18 06:34 - Physical Exam Vitals and I&O: Vital Signs Temp 98.6 F 01/02/18 06:59 Pulse 85 01/02/18 10:17 Resp 20 01/02/18 06:59 BP 127/72 01/02/18 10:17 Pulse Ox 97 01/02/18 06:59 Intake & Output 01/01/18 01/02/18 01/02/18 18:59 06:59 18:59 Intake Total 1000 120 Balance 1000 120 Intake: Oral 1000 120 Other: # Voids 4 3 # Bowel Movements 1 Active Medications: Current Medications Acetaminophen (Tylenol) 650 mg PO Q4HR PRN PRN Reason: Mild Pain / Temp above 100 Stop: 02/27/18 20:02 Acetaminophen (Tylenol) 650 mg PO Q4HR PRN PRN Reason: PAIN Stop: 02/27/18 20:07 Al Hydrox/Mg Hydrox/Simethicone (Maalox) 30 ml PO Q4HR PRN PRN Reason: GI DISTRESS Stop: 02/27/18 20:02 Artificial Tears (Artificial Tears Ophth Soln) 1 drop EACH EYE Q8HR PRN PRN Reason: DRY EYES Stop: 02/27/18 20:46 Aspirin (Aspirin Chewable) 81 mg PO DAILY [facility] Stop: 02/28/18 08:59 Last Admin: 01/02/18 10:00 Dose: 81 mg Baclofen (Lioresal) 10 mg PO HS [facility] Stop: 02/27/18 20:59 Last Admin: 01/01/18 21:35 Dose: 10 mg Docusate Sodium (Colace) 100 mg PO BID [facility] Stop: 02/28/18 08:59 Last Admin: 01/02/18 10:00 Dose: 100 mg Glipizide (Glucotrol) 10 mg PO BID [facility] Stop: 02/28/18 08:59 Last Admin: 01/02/18 10:00 Dose: 10 mg Insulin Aspart (Novolog Insulin Sliding Scale) 0 units SUBQ Q6HR [facility]; Protocol Stop: 02/28/18 00:00 Last Admin: 01/02/18 06:46 Dose: 4 units Insulin Detemir (Levemir Insulin) 50 units SUBQ MWF [facility]; Protocol Stop: 03/04/18 20:59 Lorazepam (Ativan) 0.5 mg PO Q4HR PRN; Protocol PRN Reason: Anxiety Stop: 01/28/18 20:02 Magnesium Hydroxide (Milk Of Magnesia) 30 ml PO HS PRN PRN Reason: Constipation Magnesium Hydroxide (Milk Of Magnesia) 30 ml PO Q72H PRN PRN Reason: BOWEL MANAGEMENT Stop: 02/27/18 20:41 Memantine (Namenda) 5 mg PO DAILY [facility] Stop: 03/03/18 08:59 Last Admin: 01/02/18 10:00 Dose: 5 mg Multivitamins/Vitamin C (Theragran) 1 tab PO DAILY [facility] Stop: 02/28/18 08:59 Last Admin: 01/02/18 10:00 Dose: 1 tab Mupirocin (Bactroban Oint) 1 appl NS BID [facility] Stop: 02/28/18 08:59 Last Admin: 01/02/18 00:13 Dose: 1 appl Nifedipine (Procardia Xl) 30 mg PO DAILY [facility] Stop: 02/28/18 08:59 Last Admin: 01/02/18 10:17 Dose: 30 mg Quetiapine Fumarate (Seroquel) 25 mg PO HS [facility]; Protocol Stop: 02/27/18 20:59 Last Admin: 01/01/18 21:36 Dose: 25 mg Quetiapine Fumarate (Seroquel) 12.5 mg PO DAILY [facility]; Protocol Stop: 03/01/18 08:59 Last Admin: 01/02/18 10:18 Dose: 12.5 mg Zolpidem Tartrate (Ambien) 5 mg PO HS PRN PRN Reason: Insomnia Stop: 02/27/18 20:02 Nutritional Asmnt/Malnutr-PDOC - Dietary Evaluation Malnutrition Findings (Please click <Entered> for more info): Nutritional Asmnt/Malnutrition Start: 01/01/18 11: 39 Text: Status: Complete Freq: Protocol: Document 01/01/18 11:39 MILADY (Rec: 01/01/18 11:43 MILADY MCKAY- [email or web address]) Nutritional Asmnt/Malnutrition Patient General Information Diagnosis psychosis Pertinent Medical Hx/Surgical Hx HTN, DM, osteoarthritis Subjective Information Pt asleep in bed at time of visit Current Diet Order/ Nutrition Support [facility] 45g Pertinent Medications maalox, colace, levemir, MOM, theragran Pertinent Labs 01/01: POC glucose 110-445 Nutritional Hx/Data Height 1.65 m Height (Calculated Centimeters) 165.1 Current Weight (lbs) 71.668 kg Weight (Calculated Kilograms) 71.7 Weight (Calculated Grams) 79805.6 Body Mass Index (BMI) 26.2 Weight Status Overweight GI Symptoms GI Symptoms None Last BM 12/31 Cultural/Ethnic/Yazidi Belief unknown Usual diet at home [facility] Skin Integrity/Comment: yudi score 18 Estimated Nutritional Goals BEE in Kcals: Using Current wt Calories/Kcals/Kg 25-30kcals/kg Kcals Calculated 1800-2250kcals/day Protein: Using Current wt Protein g/k-1.2g/kg Protein Calculated 72-86g/day Fluid: ml 1800-2250ml/day (1ml/kcal) Nutritional Problem 1. Problem Problem Altered nutrition related Etiology lab values related to endocrine dysfunction Signs/Symptoms: as evidenced by POC glucose 110-445. Intervention/Recommendation Comments Recommend continuing [facility] diet Expected Outcomes/Goals Expected Outcomes/Goals PO intake >75% of meals
[2018-01-02] MEDS ORDERED: Haloperidol Lactate 5 mg/mL 1mL Vial ONE (17:25)
[2018-01-02] MEDS ORDERED: Haloperidol Lactate 5 mg/mL 1mL Vial IM PRN (17:33)
[2018-01-02] MEDS: Insulin Detemir 100 units/mL 10mL Vial SUBQ SCH (21:23)
[2018-01-03] MEDS: INSULIN ASPART SLIDING SCALE 100 UNITS/ML UNIT SUBQ SCH ×5 (06:36→21:45)
[2018-01-03] MEDS ORDERED: Insulin Detemir 100 units/mL 10mL Vial SUBQ SCH ×2 (09:00→21:00)
[2018-01-03] MEDS: NIFEdipine 30 mg ER Tab PO SCH (10:47)
[2018-01-03] MEDS: Multivitamin Tab PO SCH (10:48)
[2018-01-03] MEDS: Aspirin 81mg Chewable Tab PO SCH (10:48)
[2018-01-03] MEDS: Insulin Detemir 100 units/mL 10mL Vial SUBQ SCH (21:44)
--- NOTE | 2018-01-04 00:58 | Progress Notes ---
DATE: 01/03/2018 Case discussed with staff of the patient, reviewed records. The patient continues to be confused. Continues to be unable to make safe plan for self-care. Continues to be labile, continues to be unpredictable and impulsive. Afraid of dying, easily agitated ____, ongoing behavioral issues. No side effects with the medication, no sedation, no nausea, no extrapyramidal symptoms. He was admitted on Namenda 5 mg daily and he is on Seroquel. No sedation or nausea, no extrapyramidal symptoms. We will continue to work with the patient in group therapy, milieu therapeutic and adjust the medications as needed. JOB# [id number]
[2018-01-04] MEDS: INSULIN ASPART SLIDING SCALE 100 UNITS/ML UNIT SUBQ SCH ×4 (06:37→21:00)
[2018-01-04] MEDS: Aspirin 81mg Chewable Tab PO SCH (09:22)
[2018-01-04] MEDS: Multivitamin Tab PO SCH (09:23)
[2018-01-04] MEDS: NIFEdipine 30 mg ER Tab PO SCH (09:23)
--- NOTE | 2018-01-04 18:44 | General Progress Note ---
Subjective - Review of Systems Events since last encounter: confused in no distress Objective - Results Recent Labs: Laboratory Last Values POC Glucose 205 MG/DL (70 - 105) H 01/03/18 17:53 - Physical Exam Vitals and I&O: Vital Signs Temp 97.9 F 01/04/18 16:37 Pulse 78 01/04/18 16:37 Resp 20 01/04/18 16:37 BP 146/71 01/04/18 16:37 Pulse Ox 95 01/04/18 16:37 Intake & Output 01/03/18 01/04/18 01/04/18 18:59 06:59 18:59 Intake Total 900 660 950 Balance 900 660 950 Intake: Oral 900 660 950 Other: # Voids 3 2 4 # Bowel Movements 1 0 1 Active Medications: Current Medications Acetaminophen (Tylenol) 650 mg PO Q4HR PRN PRN Reason: Mild Pain / Temp above 100 Stop: 02/27/18 20:02 Acetaminophen (Tylenol) 650 mg PO Q4HR PRN PRN Reason: PAIN Stop: 02/27/18 20:07 Al Hydrox/Mg Hydrox/Simethicone (Maalox) 30 ml PO Q4HR PRN PRN Reason: GI DISTRESS Stop: 02/27/18 20:02 Artificial Tears (Artificial Tears Ophth Soln) 1 drop EACH EYE Q8HR PRN PRN Reason: DRY EYES Stop: 02/27/18 20:46 Aspirin (Aspirin Chewable) 81 mg PO DAILY [facility] Stop: 02/28/18 08:59 Last Admin: 01/04/18 09:22 Dose: Not Given Baclofen (Lioresal) 10 mg PO HS [facility] Stop: 02/27/18 20:59 Last Admin: 01/03/18 21:43 Dose: 10 mg Docusate Sodium (Colace) 100 mg PO BID [facility] Stop: 02/28/18 08:59 Last Admin: 01/04/18 16:32 Dose: Not Given Glipizide (Glucotrol) 10 mg PO BID [facility] Stop: 02/28/18 08:59 Last Admin: 01/04/18 16:32 Dose: Not Given Haloperidol Lactate (Haldol) 5 mg IM STAT PRN PRN Reason: Agitation Stop: 03/03/18 17:32 Last Admin: 01/02/18 17:45 Dose: 5 mg Insulin Aspart (Novolog Insulin Sliding Scale) 0 units SUBQ ACHS [facility]; Protocol Stop: 03/03/18 20:59 Last Admin: 01/04/18 16:31 Dose: Not Given Insulin Detemir (Levemir Insulin) 50 units SUBQ HS [facility]; Protocol Stop: 03/03/18 20:59 Last Admin: 01/03/18 21:44 Dose: 50 units Lorazepam (Ativan) 0.5 mg PO Q4HR PRN; Protocol PRN Reason: Anxiety Stop: 01/28/18 20:02 Last Admin: 01/04/18 09:21 Dose: 0.5 mg Magnesium Hydroxide (Milk Of Magnesia) 30 ml PO HS PRN PRN Reason: Constipation Magnesium Hydroxide (Milk Of Magnesia) 30 ml PO Q72H PRN PRN Reason: BOWEL MANAGEMENT Stop: 02/27/18 20:41 Memantine (Namenda) 5 mg PO DAILY [facility] Stop: 03/03/18 08:59 Last Admin: 01/04/18 09:22 Dose: Not Given Multivitamins/Vitamin C (Theragran) 1 tab PO DAILY [facility] Stop: 02/28/18 08:59 Last Admin: 01/04/18 09:23 Dose: Not Given Nifedipine (Procardia Xl) 30 mg PO DAILY [facility] Stop: 02/28/18 08:59 Last Admin: 01/04/18 09:23 Dose: Not Given Quetiapine Fumarate (Seroquel) 25 mg PO HS [facility]; Protocol Stop: 02/27/18 20:59 Last Admin: 01/03/18 21:43 Dose: 25 mg Quetiapine Fumarate (Seroquel) 12.5 mg PO DAILY [facility]; Protocol Stop: 03/01/18 08:59 Last Admin: 01/04/18 09:21 Dose: 12.5 mg Zolpidem Tartrate (Ambien) 5 mg PO HS PRN PRN Reason: Insomnia Stop: 02/27/18 20:02 Last Admin: 01/03/18 22:00 Dose: 5 mg Nutritional Asmnt/Malnutr-PDOC - Dietary Evaluation Malnutrition Findings (Please click <Entered> for more info): Nutritional Asmnt/Malnutrition Start: 01/01/18 11: 39 Text: Status: Complete Freq: Protocol: Document 01/01/18 11:39 MILADY (Rec: 01/01/18 11:43 BLANCOZAIRE VASQUEZN- [email or web address]) Nutritional Asmnt/Malnutrition Patient General Information Diagnosis psychosis Pertinent Medical Hx/Surgical Hx HTN, DM, osteoarthritis Subjective Information Pt asleep in bed at time of visit Current Diet Order/ Nutrition Support [facility] 45g Pertinent Medications maalox, colace, levemir, MOM, theragran Pertinent Labs 01/01: POC glucose 110-445 Nutritional Hx/Data Height 1.65 m Height (Calculated Centimeters) 165.1 Current Weight (lbs) 71.668 kg Weight (Calculated Kilograms) 71.7 Weight (Calculated Grams) 16440.6 Body Mass Index (BMI) 26.2 Weight Status Overweight GI Symptoms GI Symptoms None Last BM 12/31 Cultural/Ethnic/Christian Belief unknown Usual diet at home [facility] Skin Integrity/Comment: yudi score 18 Estimated Nutritional Goals BEE in Kcals: Using Current wt Calories/Kcals/Kg 25-30kcals/kg Kcals Calculated 1800-2250kcals/day Protein: Using Current wt Protein g/k-1.2g/kg Protein Calculated 72-86g/day Fluid: ml 1800-2250ml/day (1ml/kcal) Nutritional Problem 1. Problem Problem Altered nutrition related Etiology lab values related to endocrine dysfunction Signs/Symptoms: as evidenced by POC glucose 110-445. Intervention/Recommendation Comments Recommend continuing [facility] diet Expected Outcomes/Goals Expected Outcomes/Goals PO intake >75% of meals
[2018-01-04] MEDS: Insulin Detemir 100 units/mL 10mL Vial SUBQ SCH (21:00)
--- NOTE | 2018-01-04 21:42 | Progress Notes ---
DATE: 01/04/2018 Case was discussed with staff of the patient, reviewed records. The patient continues to have poor insight, continues to be unpredictable, impulsive, needing redirection. He is demented, confused, easily agitated. No side effects with the medication, no sedation, no nausea, no extrapyramidal symptoms. His blood sugar is high. No other lab work is available. We will continue outpatient group therapy, milieu therapy, adjust medication as needed. JOB# [id number]
[2018-01-05] MEDS: INSULIN ASPART SLIDING SCALE 100 UNITS/ML UNIT SUBQ SCH ×4 (06:31→20:59)
[2018-01-05] MEDS: Aspirin 81mg Chewable Tab PO SCH (09:32)
[2018-01-05] MEDS: Multivitamin Tab PO SCH (09:33)
[2018-01-05] MEDS: NIFEdipine 30 mg ER Tab PO SCH (09:33)
--- NOTE | 2018-01-05 14:56 | General Progress Note ---
Subjective - Review of Systems Events since last encounter: patient unpredictable confused impulsive Objective - Results Recent Labs: Laboratory Last Values POC Glucose 75 MG/DL (70 - 105) 01/05/18 11:37 - Physical Exam Vitals and I&O: Vital Signs Temp 97.6 F 01/05/18 14:00 Pulse 80 01/05/18 14:00 Resp 20 01/05/18 14:00 BP 174/83 01/05/18 14:00 Pulse Ox 97 01/05/18 14:00 Intake & Output 01/04/18 01/05/18 01/05/18 18:59 06:59 18:59 Intake Total 950 240 Balance 950 240 Intake: Oral 950 240 Other: # Voids 4 3 # Bowel Movements 1 0 Active Medications: Current Medications Acetaminophen (Tylenol) 650 mg PO Q4HR PRN PRN Reason: Mild Pain / Temp above 100 Stop: 02/27/18 20:02 Acetaminophen (Tylenol) 650 mg PO Q4HR PRN PRN Reason: PAIN Stop: 02/27/18 20:07 Al Hydrox/Mg Hydrox/Simethicone (Maalox) 30 ml PO Q4HR PRN PRN Reason: GI DISTRESS Stop: 02/27/18 20:02 Artificial Tears (Artificial Tears Ophth Soln) 1 drop EACH EYE Q8HR PRN PRN Reason: DRY EYES Stop: 02/27/18 20:46 Aspirin (Aspirin Chewable) 81 mg PO DAILY [facility] Stop: 02/28/18 08:59 Last Admin: 01/05/18 09:32 Dose: 81 mg Baclofen (Lioresal) 10 mg PO HS [facility] Stop: 02/27/18 20:59 Last Admin: 01/04/18 21:00 Dose: Not Given Docusate Sodium (Colace) 100 mg PO BID [facility] Stop: 02/28/18 08:59 Last Admin: 01/05/18 09:32 Dose: 100 mg Glipizide (Glucotrol) 10 mg PO BID [facility] Stop: 02/28/18 08:59 Last Admin: 01/05/18 09:32 Dose: 10 mg Haloperidol Lactate (Haldol) 5 mg IM STAT PRN PRN Reason: Agitation Stop: 03/03/18 17:32 Last Admin: 01/02/18 17:45 Dose: 5 mg Insulin Aspart (Novolog Insulin Sliding Scale) 0 units SUBQ ACHS [facility]; Protocol Stop: 03/03/18 20:59 Last Admin: 01/05/18 12:02 Dose: Not Given Insulin Detemir (Levemir Insulin) 50 units SUBQ HS [facility]; Protocol Stop: 03/03/18 20:59 Last Admin: 01/04/18 21:00 Dose: 50 units Lorazepam (Ativan) 0.5 mg PO Q4HR PRN; Protocol PRN Reason: Anxiety Stop: 01/28/18 20:02 Last Admin: 01/04/18 09:21 Dose: 0.5 mg Magnesium Hydroxide (Milk Of Magnesia) 30 ml PO HS PRN PRN Reason: Constipation Magnesium Hydroxide (Milk Of Magnesia) 30 ml PO Q72H PRN PRN Reason: BOWEL MANAGEMENT Stop: 02/27/18 20:41 Memantine (Namenda) 5 mg PO DAILY [facility] Stop: 03/03/18 08:59 Last Admin: 01/05/18 09:32 Dose: 5 mg Multivitamins/Vitamin C (Theragran) 1 tab PO DAILY [facility] Stop: 02/28/18 08:59 Last Admin: 01/05/18 09:33 Dose: 1 tab Nifedipine (Procardia Xl) 30 mg PO DAILY [facility] Stop: 02/28/18 08:59 Last Admin: 01/05/18 09:33 Dose: 30 mg Quetiapine Fumarate (Seroquel) 25 mg PO HS [facility]; Protocol Stop: 02/27/18 20:59 Last Admin: 01/04/18 21:00 Dose: Not Given Quetiapine Fumarate (Seroquel) 12.5 mg PO DAILY [facility]; Protocol Stop: 03/01/18 08:59 Last Admin: 01/05/18 09:33 Dose: 12.5 mg Zolpidem Tartrate (Ambien) 5 mg PO HS PRN PRN Reason: Insomnia Stop: 02/27/18 20:02 Last Admin: 01/03/18 22:00 Dose: 5 mg Nutritional Asmnt/Malnutr-PDOC - Dietary Evaluation Malnutrition Findings (Please click <Entered> for more info): Nutritional Asmnt/Malnutrition Start: 01/01/18 11: 39 Text: Status: Complete Freq: Protocol: Document 01/01/18 11:39 MILADY (Rec: 01/01/18 11:43 EGRIFFITH NELY- [email or web address]) Nutritional Asmnt/Malnutrition Patient General Information Diagnosis psychosis Pertinent Medical Hx/Surgical Hx HTN, DM, osteoarthritis Subjective Information Pt asleep in bed at time of visit Current Diet Order/ Nutrition Support [facility] 45g Pertinent Medications maalox, colace, levemir, MOM, theragran Pertinent Labs 01/01: POC glucose 110-445 Nutritional Hx/Data Height 1.65 m Height (Calculated Centimeters) 165.1 Current Weight (lbs) 71.668 kg Weight (Calculated Kilograms) 71.7 Weight (Calculated Grams) 69113.6 Body Mass Index (BMI) 26.2 Weight Status Overweight GI Symptoms GI Symptoms None Last BM 12/31 Cultural/Ethnic/Islam Belief unknown Usual diet at home [facility] Skin Integrity/Comment: yudi score 18 Estimated Nutritional Goals BEE in Kcals: Using Current wt Calories/Kcals/Kg 25-30kcals/kg Kcals Calculated 1800-2250kcals/day Protein: Using Current wt Protein g/k-1.2g/kg Protein Calculated 72-86g/day Fluid: ml 1800-2250ml/day (1ml/kcal) Nutritional Problem 1. Problem Problem Altered nutrition related Etiology lab values related to endocrine dysfunction Signs/Symptoms: as evidenced by POC glucose 110-445. Intervention/Recommendation Comments Recommend continuing [facility] diet Expected Outcomes/Goals Expected Outcomes/Goals PO intake >75% of meals
[2018-01-05] MEDS: Insulin Detemir 100 units/mL 10mL Vial SUBQ SCH (20:59)
[2018-01-06] MEDS: INSULIN ASPART SLIDING SCALE 100 UNITS/ML UNIT SUBQ SCH ×2 (06:48→11:37)
[2018-01-06] MEDS: Aspirin 81mg Chewable Tab PO SCH (08:52)
[2018-01-06] MEDS: Multivitamin Tab PO SCH (08:52)
[2018-01-06] MEDS: NIFEdipine 30 mg ER Tab PO SCH (08:53)
--- NOTE | 2018-01-06 16:21 | General Progress Note ---
Objective - Results Recent Labs: Laboratory Last Values POC Glucose 168 MG/DL (70 - 105) H 01/06/18 05:48 - Physical Exam Vitals and I&O: Vital Signs Temp 98 F 01/05/18 20:00 Pulse 71 01/06/18 08:53 Resp 20 01/05/18 20:00 BP 103/68 01/06/18 08:53 Pulse Ox 99 01/05/18 20:00 Intake & Output 01/05/18 01/06/18 01/06/18 18:59 06:59 18:59 Intake Total 1000 Balance 1000 Intake: Oral 1000 Other: # Voids 4 # Bowel Movements 1 Active Medications: Current Medications Acetaminophen (Tylenol) 650 mg PO Q4HR PRN PRN Reason: Mild Pain / Temp above 100 Stop: 02/27/18 20:02 Acetaminophen (Tylenol) 650 mg PO Q4HR PRN PRN Reason: PAIN Stop: 02/27/18 20:07 Al Hydrox/Mg Hydrox/Simethicone (Maalox) 30 ml PO Q4HR PRN PRN Reason: GI DISTRESS Stop: 02/27/18 20:02 Artificial Tears (Artificial Tears Ophth Soln) 1 drop EACH EYE Q8HR PRN PRN Reason: DRY EYES Stop: 02/27/18 20:46 Aspirin (Aspirin Chewable) 81 mg PO DAILY [facility] Stop: 02/28/18 08:59 Last Admin: 01/06/18 08:52 Dose: 81 mg Baclofen (Lioresal) 10 mg PO HS [facility] Stop: 02/27/18 20:59 Last Admin: 01/05/18 20:59 Dose: Not Given Docusate Sodium (Colace) 100 mg PO BID [facility] Stop: 02/28/18 08:59 Last Admin: 01/06/18 08:54 Dose: Not Given Glipizide (Glucotrol) 10 mg PO BID [facility] Stop: 02/28/18 08:59 Last Admin: 01/06/18 08:54 Dose: 10 mg Haloperidol Lactate (Haldol) 5 mg IM STAT PRN PRN Reason: Agitation Stop: 03/03/18 17:32 Last Admin: 01/02/18 17:45 Dose: 5 mg Insulin Aspart (Novolog Insulin Sliding Scale) 0 units SUBQ ACHS [facility]; Protocol Stop: 03/03/18 20:59 Last Admin: 01/06/18 11:37 Dose: 10 units Insulin Detemir (Levemir Insulin) 50 units SUBQ HS [facility]; Protocol Stop: 03/03/18 20:59 Last Admin: 01/05/18 20:59 Dose: Not Given Lorazepam (Ativan) 0.5 mg PO Q4HR PRN; Protocol PRN Reason: Anxiety Stop: 01/28/18 20:02 Last Admin: 01/04/18 09:21 Dose: 0.5 mg Magnesium Hydroxide (Milk Of Magnesia) 30 ml PO HS PRN PRN Reason: Constipation Magnesium Hydroxide (Milk Of Magnesia) 30 ml PO Q72H PRN PRN Reason: BOWEL MANAGEMENT Stop: 02/27/18 20:41 Memantine (Namenda) 5 mg PO DAILY [facility] Stop: 03/03/18 08:59 Last Admin: 01/06/18 08:54 Dose: 5 mg Multivitamins/Vitamin C (Theragran) 1 tab PO DAILY [facility] Stop: 02/28/18 08:59 Last Admin: 01/06/18 08:52 Dose: 1 tab Nifedipine (Procardia Xl) 30 mg PO DAILY [facility] Stop: 02/28/18 08:59 Last Admin: 01/06/18 08:53 Dose: 30 mg Quetiapine Fumarate (Seroquel) 25 mg PO HS [facility]; Protocol Stop: 02/27/18 20:59 Last Admin: 01/05/18 20:59 Dose: Not Given Quetiapine Fumarate (Seroquel) 12.5 mg PO DAILY [facility]; Protocol Stop: 03/01/18 08:59 Last Admin: 01/06/18 10:57 Dose: 12.5 mg Zolpidem Tartrate (Ambien) 5 mg PO HS PRN PRN Reason: Insomnia Stop: 02/27/18 20:02 Last Admin: 01/03/18 22:00 Dose: 5 mg Nutritional Asmnt/Malnutr-PDOC - Dietary Evaluation Malnutrition Findings (Please click <Entered> for more info): Nutritional Asmnt/Malnutrition Start: 01/01/18 11: 39 Text: Status: Complete Freq: Protocol: Document 01/01/18 11:39 MILADY (Rec: 01/01/18 11:43 MILADY [id number]) Nutritional Asmnt/Malnutrition Patient General Information Diagnosis psychosis Pertinent Medical Hx/Surgical Hx HTN, DM, osteoarthritis Subjective Information Pt asleep in bed at time of visit Current Diet Order/ Nutrition Support [facility] Pertinent Medications maalox, colace, levemir, MOM, theragran Pertinent Labs 01/01: POC glucose 110-445 Nutritional Hx/Data Height 1.65 m Height (Calculated Centimeters) 165.1 Current Weight (lbs) 71.668 kg Weight (Calculated Kilograms) 71.7 Weight (Calculated Grams) 16598.6 Body Mass Index (BMI) 26.2 Weight Status Overweight GI Symptoms GI Symptoms None Last BM 12/31 Cultural/Ethnic/Druze Belief unknown Usual diet at home [facility] Skin Integrity/Comment: yudi score 18 Estimated Nutritional Goals BEE in Kcals: Using Current wt Calories/Kcals/Kg 25-30kcals/kg Kcals Calculated 1800-2250kcals/day Protein: Using Current wt Protein g/k-1.2g/kg Protein Calculated 72-86g/day Fluid: ml 1800-2250ml/day (1ml/kcal) Nutritional Problem 1. Problem Problem Altered nutrition related Etiology lab values related to endocrine dysfunction Signs/Symptoms: as evidenced by POC glucose 110-445. Intervention/Recommendation Comments Recommend continuing [facility] diet Expected Outcomes/Goals Expected Outcomes/Goals PO intake >75% of meals
--- NOTE | 2018-01-07 11:31 | History & Physical ---
ADMIT DATE: HISTORY OF PRESENT ILLNESS: An 82-year-old male patient actually was admitted initially under medical floor because of the high blood sugar and low sodium, and was treated and improved. His sugar was in the 200s, so we decided to send him to Geropsych unit for his acute agitation and acute psychosis. PAST MEDICAL HISTORY: As enumerated before, history of hypertension and diabetes. PHYSICAL EXAMINATION: GENERAL: The patient is alert, oriented elderly male. VITAL SIGNS: As noted in chart. HEAD: Normal. ENT: Normal. NECK: Supple, nontender. LUNGS: Clear. CARDIOVASCULAR SYSTEM: S1, S2 heard. ABDOMEN: Soft. Bowel sounds are heard. CENTRAL NERVOUS SYSTEM: Grossly normal. DIAGNOSES: Acute psychosis, agitation, bipolar disorder, history of diabetes uncontrolled and now controlled. I will follow the patient medically along with Dr. Jennings. JOB# [id number]
--- NOTE | 2018-01-07 11:37 | Progress Notes ---
DATE: 01/05/2018 DATE: 01/05/2018 SUBJECTIVE: Chart reviewed and the patient interviewed and discussed the patient's condition with the staff on 01/05/2018 and the patient was calm and cooperative and compliant with taking medications with no side effects. I placed the discharge order to [facility] to post acute on that date. The patient was not discharged on that date and the discharge was postponed and it seems that because of the systems requirements planner was overwhelmed with many of the discharges on that date and over that my knowledge the discharge was resented and the patient stays in the hospital. I am completing that progress note for 01/05/2018 instead of dictating discharge summary. JOB# [id number]
--- NOTE | 2018-01-08 12:43 | Discharge Summary ---
DATE OF DISCHARGE: 01/06/2018 AGE: 82. SEX: Male. PHYSICIAN: Dr. Ayala. FINAL DIAGNOSIS: PRIMARY DIAGNOSIS: Unspecified psychosis. SECONDARY DIAGNOSIS: Dementia, moderate to severe, with psychotic features and behavioral disturbances. MEDICAL DIAGNOSES: 1. Hyperlipidemia 2. Benign prostatic hypertrophy. 3. Hypertension. 4. Diabetes mellitus. REASON FOR HOSPITALIZATION: The patient was admitted to the hospital because of increased agitation and inappropriate sexual behavior in the longterm where he lives. HOSPITAL COURSE: The patient continued to be irritable and angry. The patient also was in denial of inappropriate sexual behavior. The patient also was restless and needed lots of redirections. He was also cooperative and compliant with taking his medications and the patient was given Seroquel in a dose of 12.5 mg every day that helped him to be calmer and less irritable and less agitated, but also was given Seroquel 25 mg at bedtime. The patient was easier to redirect him. So, he was not exhibiting any sexual inappropriate behavior. The patient was discharged from the hospital back to [facility]. PHYSICAL EXAMINATION: Same as mentioned under [place] [facility] of final diagnosis. The patient had no major medical problems while in the hospital. AFTER DISCHARGE PLANS: The patient discharged from the hospital back to [facility] with plans for outpatient treatment there. EXPECTED OUTCOME AFTER DISCHARGE: Fair if the patient continues with his discharge plans and outpatient treatment and continue to take his medication. JOB# [id number]
== END 2018-01-06 15:45 | DRG 885 ==
LOC: GERO 16:50
PROVIDERS: ADMIT Psychiatry & Neurology Psychiatry; ATTEND Psychiatry & Neurology Psychiatry
DX: F23 Brief psychotic disorder (principal); F03.91 Unspecified dementia, unspecified severity, with behavioral disturbance; I10 Essential (primary) hypertension; E78.5 Hyperlipidemia, unspecified; N40.0 Benign prostatic hyperplasia without lower urinary tract symptoms; E11.9 Type 2 diabetes mellitus without complications; M19.90 Unspecified osteoarthritis, unspecified site; F31.9 Bipolar disorder, unspecified
CPT/HCPCS: 82948-90; J1200; J1630; J1815; J2060; Z7610